=== PATIENT | female | born 1970 | race African-American/Black ===

== ENCOUNTER 2023-12-14 13:21 | Outpatient (CLI) | payer MEDICARE, MEDICAID, SELFPAY | END 2023-12-14 13:22 | disposition home or self-care (01) | LOC: ANHAUDASC 13:23 | PROVIDERS: PCP Otolaryngology; Visit Provider Otolaryngology | DX: H69.92 Unspecified Eustachian tube disorder, left ear (principal) | CPT/HCPCS: 92557; 92567 ==